=== PATIENT | male | born 1960 | race Caucasian/White ===

== ENCOUNTER 2016-05-30 12:49 | Outpatient (CLI) | payer OTHER ==
[2015-06-20 10:44] VITALS: BMI 31.1
--- NOTE | 2016-05-30 13:56 | DI ---
EXAM: Eight view cervical spine with the obliques and flexion extension COMPARISON: None HISTORY: Neck pain FINDINGS: There has been prior anterior cervical discectomy and fusion at C6-7. Alignment of the diaz rdware is anatomic with no evidence for failure or loosening. Oblique views demonstrate mild forami nal narrowing on the left at C5-6. Flexion/extension views showed no change in position. The verteb dustin have normal height and alignment. There is quite a bit of disc space narrowing at C5-6 with ante rior osteophyte formation. The dens is intact. C7-T1 is not evaluated. The prevertebral soft tis sues are unremarkable. The facets maintain appropriate alignment. IMPRESSION: 1. Prior anterior cervical discectomy and fusion at C6-7 as described with anatomic alignment. 2. Relatively advanced degenerative change at C5-6 with some foraminal narrowing on the left.
== END 2016-05-30 12:50 | disposition home or self-care (01) ==
LOC: RAD 12:49
PROVIDERS: ATTEND Physician Assistant
DX: M54.2 Cervicalgia (principal)